=== PATIENT | female | born 1975 | race Caucasian/White ===

== ENCOUNTER 2020-08-24 10:50 | Emergency (ER) | payer OTHER ==
[~2020-08-24 10:50] MED LIST: ASPIRIN 325MG325 MG PO; CARDIZEM CD300 MG PO; CILOSTAZOL50 MG PO; COZAAR50 MG PO; FOLIC ACID 1 MG1 MG PO; HYDROCHLOROTHIA25 MG PO; KEPPRA500 MG PO; LIPITOR TAB 2020 MG PO; LISINOPRIL5 MG PO; NEURONTIN 300300 MG PO; NITROSTAT0.4 MG SL; POTASSIUM CHLO20 ME1 PO; PROVENTIL HFA6.7 GM INH; RANEXA500 MG PO; SYNTHROID75 MCG PO; TOPROL XL100 MG PO; TRILEPTAL300 MG/5 M PO; VITAMIN D5000 UNIT PO
[2020-08-24 11:27] LABS: HEMOGLOBIN 16.2 gm/dl (12.3-15.3); RED BLOOD COUNT 4.62 M/UL (4.00-5.10); WHITE BLOOD COUNT 9.3 K/UL (4.5-11.0)
[2020-08-24 12:17] LABS: BUN/CREATININE RATIO 29 (0-10)
[2020-08-24] MEDS ORDERED: TOPROL XL 50 MG50 MG PO (14:30)
== END 2020-08-24 14:38 | disposition home or self-care (01) ==
LOC: ER1 10:50
PROVIDERS: Internal Medicine
DX: R07.9 Chest pain, unspecified (principal); G40.909 Epilepsy, unspecified, not intractable, without status epilepticus; I11.0 Hypertensive heart disease with heart failure; I50.9 Heart failure, unspecified; F17.210 Nicotine dependence, cigarettes, uncomplicated; Z88.2 Allergy status to sulfonamides
CPT/HCPCS: 36415; 71046; 80053; 81001; 82550; 82553; 84484; 84703; 85025; 93005; 99285; J0360

== ENCOUNTER → 2021-11-13 | Outpatient (CLI) | payer OTHER ==
[~2021-11-13] MED LIST changes: +TOPROL XL 50 MG50 MG PO
== END ==
LOC: KOH-I 10-31 14:00
DX: R59.1 Generalized enlarged lymph nodes (principal); R49.0 Dysphonia; I65.23 Occlusion and stenosis of bilateral carotid arteries
CPT/HCPCS: 76536; 93880